=== PATIENT | male | born 1955 | race Caucasian/White ===

== ENCOUNTER 2025-02-16 12:31 | Emergency (ER) | payer MEDICARE, MEDICAID ==
[~2025-02-16] VITALS: Ht 172.7 cm; Wt 100.0 kg
[2025-02-16 12:34] VITALS: TEMP 98.1
[2025-02-16 13:51] LABS: CREATININE 1.09 MG/DL (0.60-1.10); TOTAL CARBON DIOXIDE 28.0 MMOL/L (24-32); eCRCL 61 ML/MIN; eGFR 67 ML/MIN
[2025-02-16 14:02] LABS: MEAN PLATELET VOLUME 8.2 FL (7.4-10.4); RED CELL DISTRIBUTION WIDTH 14.2 % (11.5-14.5)
[2025-02-16 14:14] LABS: LEUKOCYTE ESTERASE ,URINE NEGATIVE (Neg); NITRITES, URINE NEGATIVE (Neg); OCCULT BLOOD,URINE SMALL (Neg)
[2025-02-16 14:31] LABS: SQUAMOUS EPITHELIAL CELL,UR FEW /LPF (FEW); UA COLLECTION TYPE CLN CATCH MIDSTREAM
[2025-02-16 14:50] LABS: BANDS% (MANUAL) 1.0 % (0-10); EOSINOPHILS % (MANUAL) 4.0 % (0-6); LYMPHOCYTES % (MANUAL) 27.0 % (21-51); MONOCYTES % (MANUAL) 9.0 % (2-12); NEUTROPHILS % (MANUAL) 59.0 % (42-75); PLATELET ESTIMATE NORMAL
--- NOTE | 2025-02-16 15:24 | Physician Documentation ---
History of Present Illness Chief Complaint: Abdominal Pain Stated Complaint: FLANK PAIN Time Seen by MD: 14:45 [facility] 69 Male presents to the ED with complaint of right flank pain. States he has a history of kidney stones. Having difficulty getting comfortable because of the pain. Denies any urinary symptoms. While in the ED he felt his pain subside but still feels and achy feeling in his right kidney Day of Onset: Feb 16, 2025 Medication Reconciliation Allergies: Coded Allergies: No Known Allergies (Unverified , 02/16/25) Review of Systems All Other Systems at this time: Reviewed and Negative ROS As stated above in the HPI, otherwise all systems are reviewed and negative. Physical Exam Vital Signs: Temperature: 98.1, Source: Temporal, Heart Rate: 71, Respiratory Rate: 24, BP: 219/106, Pulse Oximetry: 99, Weight: 100.000 Physical Exam General: Alert, no apparent distress. Gastrointestinal: Soft, nontender, nondistended. Bowels sounds present. Right CVA tenderness Neurologic: Oriented x4. Psychiatric: Normal mood and affect. Skin: Normal color, warm and dry. No edema, no ecchymosis. 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 Abdomen Pelvis (02/16/25 15:07) Vital Signs 02/16/25 12:34 Temp 98.1 Pulse 71 Resp 24 B/P (MAP) 219/106 Pulse Ox 99 Laboratory Tests Test 02/16/25 13:09 02/16/25 14:00 White Blood Count 9.0 Red Blood Count 5.37 Hemoglobin 16.1 Hematocrit 48.2 Mean Corpuscular Volume 89.7 Mean Corpuscular Hemoglobin 30.0 Mean Corpuscular Hemoglobin Concent 33.4 Red Cell Distribution Width 14.2 Platelet Count 419 Mean Platelet Volume 8.2 Neutrophils (%) (Auto) 53.3 Lymphocytes (%) (Auto) 31.6 Monocytes (%) (Auto) 10.2 Eosinophils (%) (Auto) 2.4 Basophils (%) (Auto) 2.5 H Neutrophils # (Auto) 4.8 Lymphocytes # (Auto) 2.9 Monocytes # (Auto) 0.9 Eosinophils # (Auto) 0.2 Basophils # (Auto) 0.2 CBC Comment Differential Total Cells Counted 100 Neutrophils % (Manual) 59.0 Band Neutrophils % 1.0 Lymphocytes % (Manual) 27.0 Monocytes % (Manual) 9.0 Eosinophils % (Manual) 4.0 Platelet Estimate Normal Red Blood Cell Morphology Normal Basophilic Stippling Sodium Level 141 Potassium Level 4.1 Chloride Level 106 Carbon Dioxide Level 28.0 Anion Gap 7 L Blood Urea Nitrogen 20 H Creatinine 1.09 Estimated GFR/1.73 m2 67 BUN/Creatinine Ratio 18.3 Glucose Level 142 H Calcium Level 9.2 Total Bilirubin 0.6 Aspartate Amino Transf (AST/SGOT) 22 Alanine Aminotransferase (ALT/SGPT) 41 Alkaline Phosphatase 75 Total Protein 7.7 Albumin 4.1 Globulin 3.6 Albumin/Globulin Ratio 1.1 Lipase 50 Chemistry Comments Urine Specimen Description Cln catch midstream Urine Color Yellow Urine Clarity Clear Urine pH 6.0 Urine Specific [place] 1.025 Urine Protein Trace Urine Glucose (UA) Negative Urine Ketones Negative Urine Occult Blood Small Urine Nitrite Negative Urine Bilirubin Negative Urine Urobilinogen 1.0 Urine Leukocyte Esterase Negative Urine RBC 10-20 Urine WBC 0-4 Urine Squamous Epithelial Cells Few Urine Bacteria None seen Urine Culture Indicated Not ind Volume Urine Centrifuged 10 ml Urine Comment Medical Decision Making Findings This patient presents with multiple kidney stones particularly one forward of 5 mm in size in the right ureter causing mild hydronephrosis. Reports overall improved symptoms. I do not see any reason to pursue any further evaluation via Urology as he can follow up in the outpatient setting. His sent him home with Flomax and instructions to follow up accordingly Differential Dx:Considerations: Include: AAA, Angina/NE, Aortic dissection, Appendicitis, Bowel obstruction, Cholangitis, Cholelithasis, Constipation, Diverticular disease, Esophageal rupture, Esophagitis, Gastritis/PUD, Gastroenteritis, GI hemorrhage, Hernia, Hepatitis, Inflammatory BD, Ischemic bowel, Pancreatitis, Porphyria, Testicular torsion, Trauma, intraabdominal, Urinary obstruction, Urinary tract infection, Urolithiasis, Other Departure Disposition: 01 HOME / SELF CARE / HOMELESS Impression: Primary Impression: Kidney calculus Condition: Stable Discharge Instructions: Kidney Stones, [id number] Additional Instructions: be sure to establish care with a urologist if you continue to have kidney stone symptoms. Obtain a referral from your primary care. Medication to your pharmacy which should a with the passing of kidney stones. Worsening symptoms feel free to return to the ED Referrals: NO PRIMARY CARE PROVIDER (PCP) Prescriptions Tamsulosin Hcl* (Flomax*) 0.4 Mg Cap.sr.24h 1 CAP PO DAILY for 30 Days, #30 CAP Prov: SHAWN GALO [employer] 02/16/25 Education Educated: Patient Educated regarding: diagnosis Signature Scribe Signature: d Attestation: Scribed for Shawn Galo [employer] Review Appraiser by Shawn Galo - R[place] . 02/16/25 15:24 SHAWN GALO NP Feb 16, 2025 15:24
--- NOTE | 2025-02-16 15:58 | RADIOLOGY REPORT ---
COMPUTERIZED TOMOGRAPHY ABDOMEN AND PELVIS WITHOUT CONTRAST REASON FOR EXAM: kidney stone COMPARISON: None TECHNIQUE: Spiral scans were acquired from the diaphragm to the symphysis pubis without intravenous contrast administration. 2-D coronal and sagittal reformatted images were provided. Radiation optimization: All CT scans at this facility use at least one of these dose optimization techniques: Automated exposure control mA and/or kV adjustment per patient size (includes targeted exams where dose is matched to clinical indication) or iterative reconstruction. RADIATION DOSE: CTDI: 31 mGy DLP: 1510 mGy-cm FINDINGS: The lung bases are grossly clear. There is no pleural effusion. There is no pericardial effusion. The spleen is not enlarged. The liver is normal in size and contour. Evaluation of the abdominal organs is suboptimal in the absence of intravenous contrast. No calcified gallstone is identified. Unenhanced appearance of the pancreas is unremarkable. The adrenal glands are normal. The kidneys are similar in size. There are numerous nonobstructive calculi in both kidneys, the largest of which measures 4 mm at the inferior pole of the right kidney. There are a few simple parapelvic cysts in the left kidney which require no dedicated follow-up. There is no left hydronephrosis. There is mild right hydroureteronephrosis. There are 4 mm and 5 mm calculi in the distal right ureter near the ureterovesical junction. The urinary bladder is within normal limits. The prostate is significantly enlarged. The colonic stool burden is small. The appendix is normal. There is no pathologic distention of the small bowel. There is no abdominal aortic aneurysm. There is no pathologic lymphadenopathy identified by size criteria. No acute osseous abnormality is identified. IMPRESSION: There are 4 mm and 5 mm calculi in the distal right ureter near the ureterovesical junction causing mild right hydroureteronephrosis. There are numerous additional nonobstructive calculi within both kidneys. Normal appendix Prostatomegaly
[2025-02-16] MEDS ORDERED: TAMS-55 PO (16:02)
[2025-02-16 16:20] VITALS: BP 178/92; PULSE 72; O2SAT 98
[2025-02-16 16:25] VITALS: RESP 16
[2025-02-16] MEDS: ketorolac trometh 30MG/ML vial 30 MG/ML VIAL IM ONE (16:25)
== END 2025-02-16 16:33 | disposition home or self-care (01) ==
LOC: ER 12:32
DX: N20.0 Calculus of kidney (principal); Z87.442 Personal history of urinary calculi
CPT/HCPCS: 36415; 74176; 80053; 81001; 83690; 85007; 85025; 96372; 99285; J1885